=== PATIENT | male | born 1970 | race African-American/Black ===

== ENCOUNTER 2017-10-29 18:08 | Emergency (ER) | payer BC ==
[~2017-10-29] VITALS: Ht 180.3 cm; Wt 88.5 kg
[~2017-10-29 18:08] MED LIST: AMLO10TA2 PO
[2017-10-29 18:12] VITALS: BP 150/75; PULSE 65; RESP 18; TEMP 98.3; O2SAT 98
--- NOTE | 2017-10-29 19:21 | PD ---
HPI Chief Complaint: Pain: Acute or Chronic Time Seen by Provider: 19:10 Travel History International Travel<30 days: No Contact w/Intl Traveler<30days: No Traveled to known affect area: No History of Present Illness HPI Patient is a 47-year-old male sent by the [facility] emergency department for ultrasound to rule out DVT in the right lower extremity. Patient states on Wednesday he noticed a lump on the anterior aspect of his right lower leg, he reports his pain is a 2 out of 10. He states it is tender to the touch. He presented to the emergency department concerned for DVT. Patient reports a past medical history of hypertension, currently on amlodipine. He denies any history of blood clots. He further denies any redness or warmth to his lower leg. Symptom onset was gradual, symptom severity is mild, there are no alleviating factors. Symptoms are exacerbated to touch. [facility] Past Medical History Hypertension: Yes Social History Alcohol Use: No Tobacco Use: No Substance Use: No Allergies-Medications (Allergen,Severity, Reaction): Coded Allergies: No Known Allergies (Unverified , 10/29/17) Reported Meds & Prescriptions Reported Meds & Active Scripts Active Reported Amlodipine (Amlodipine Besylate) 10 Mg Tab 10 Mg PO DAILY Review of Systems Except as stated in HPI: all other systems reviewed are Neg Skin: Positive Lumps Physical Exam Narrative GENERAL: Well-developed, well-nourished, alert -[place] male. Presenting in no acute distress. SKIN: Warm and dry. 1 cm palpable lump to right lower leg midshaft. No erythema or induration noted. Nonfluctuant. HEAD: Atraumatic. Normocephalic. EYES: Pupils equal and round. No scleral icterus. No injection or drainage. ENT: No nasal bleeding or discharge. Mucous membranes pink and moist. NECK: Trachea midline. No JVD. CARDIOVASCULAR: Regular rate and rhythm. RESPIRATORY: No accessory muscle use. Clear to auscultation. Breath sounds equal bilaterally. GASTROINTESTINAL: Abdomen soft, non-tender, nondistended. Hepatic and splenic margins not palpable. MUSCULOSKELETAL: Extremities without clubbing, cyanosis, or edema. No obvious deformities. NEUROLOGICAL: Awake and alert. No obvious cranial nerve deficits. Motor grossly within normal limits. Five out of 5 muscle strength in the arms and legs. Normal speech. PSYCHIATRIC: Appropriate mood and affect; insight and judgment normal. Data Data Last Documented VS Vital Signs Date Time Temp Pulse Resp B/P (MAP) Pulse Ox O2 Delivery O2 Flow Rate FiO2 10/29/17 18:12 98.3 65 18 150/75 (100) 98 Orders Orders Us Leg Venous Doppler (10/29/17 18:17) MDM Medical Decision Making Medical Screen Exam Complete: Yes Emergency Medical Condition: Yes Medical Record Reviewed: Yes Interpretation(s) Last Impressions Lower Extremity Ultrasound 10/29/177 Signed Impressions: Service Date/Time: Sunday, October 29, 2017 19:51 - CONCLUSION: Partial nonocclusive thrombus seen in the superficial greater saphenous vein in the calf. The remaining venous structures in the right lower extremity are patent. Valentino Avina MD Vital Signs Date Time Temp Pulse Resp B/P (MAP) Pulse Ox O2 Delivery O2 Flow Rate FiO2 10/29/17 18:12 98.3 65 18 150/75 (100) 98 Differential Diagnosis Cyst versus abscess versus DVT versus other Narrative Course Patient is a 47-year-old male transferred from [facility] emergency department for ultrasound the right lower extremity. Ultrasound was ordered and pending. Patient's vital signs are stable, he is resting comfortably. Ultrasound the right lower extremity shows a partial nonocclusive thrombus seen in the superficial greater saphenous vein in the calf. The remaining venous structures in the right lower extremity are patent. Patient will be provided with a prescription for indomethacin. He is encouraged to elevate and apply warm compresses to the affected area when he is at rest, he was advised to avoid bed rest. Findings and plan of care were discussed with my attending physician. Patient verbalized understanding of discharge instructions. Patient stable for discharge. Diagnosis Primary Impression: Greater saphenous vein embolism Qualified Codes: I82.811 - Embolism and thrombosis of superficial veins of right lower extremity Referrals: Primary Care Physician 3 days Patient Instructions: Deep Venous Thrombosis (ED), General Instructions Additional Instructions: Follow-up with your primary doctor in 2-3 days Elevate extremity and apply warm compress when you are resting Avoid bed rest Take medications as needed and as directed Return to emergency department for any new or worsening symptoms Ultrasound of the right lower leg should be repeated in 1 week, this can be performed on an outpatient basis through your primary doctor or you may return to the emergency department. Med/Other Pt SpecificInfo: Prescription(s) given Scripts Indomethacin (Indomethacin) 50 Mg Cap 50 MG PO TID for 7 Days, CAP 0 Refills Take with food, milk, or antacids to decrease stomach adverse effects. Prov: Dena Martinez 10/29/17 Disposition: 01 DISCHARGE HOME Condition: Stable Dena Martinez Oct 29, 2017 19:21
--- NOTE | 2017-10-29 20:50 | RADRPT ---
EXAM DATE/TIME: 10/29/2017 19:51 [place] COMPARISON: No previous studies available for comparison. INDICATIONS : Right leg pain. MEDICAL HISTORY : Hypertension. SURGICAL HISTORY : None. ENCOUNTER: Initial ACUITY: 1 week PAIN SCORE: 4/10 LOCATION: Right leg. TECHNIQUE: Venous ultrasound of the leg was performed from the inguinal ligament to the proximal calf. Real-charlie e, color Doppler and spectral tracing, compression and augmentation techniques were used. FINDINGS: The greater saphenous vein in the calf is not fully compressible. Some flow is still seen within this region. The upper greater saphenous vein is patent. There is normal compressibility of the deep veno us system from the inguinal region to the proximal calf. No echogenic clot is seen in the lumen of t he common femoral, femoral, popliteal, and posterior tibial veins. There is a normal response of the venous system to proximal and distal augmentation and respiration. CONCLUSION: Partial nonocclusive thrombus seen in the superficial greater saphenous vein in the calf. The remaini ng venous structures in the right lower extremity are patent. Valentino Avina MD on October 29, 2017 at 20:46 Board Certified Radiologist. This report was verified electronically.
[2017-10-29] MEDS ORDERED: INDO50CA PO (21:10)
== END 2017-10-29 21:35 | disposition home or self-care (01) ==
LOC: NEPC 18:08
DX: I82.811 Embolism and thrombosis of superficial veins of right lower extremity (principal); I10 Essential (primary) hypertension
CPT/HCPCS: 93971; 99281; 99284